=== PATIENT | female | born 2000 | race Caucasian/White ===

== ENCOUNTER 2018-08-31 14:45 | Emergency (ER) | payer MEDICAID, SELFPAY ==
[2018-08-31] VITALS (12 sets, daily range): BP systolic 104–131; BP diastolic 49–95; PULSE 58–86; RESP 13–18; TEMP 36–36.4; O2SAT 95–100
--- NOTE | 2018-08-31 15:12 | DI.CT_ITS ---
SYMPTOM/DIAGNOSIS: ABDOMINAL PAIN DIFFUSE 4 DAYS, VOMITING ABDOMINAL AND PELVIS CT: 08/31 CT examination of the abdomen and pelvis was performed with intravenous infusion of 80 cc Omnipaque 350. There is significant motion artifact. Images obtained through the lung bases are unremarkable. Liver, spleen and pancreas are grossly unremarkable. Adrenals and kidneys appear intact. Abdominal aorta is of normal diameter and no major vascular abnormalities seen. Gallbladder and bile ducts are CT normal. No gross abdominal wall hernia seen. No gross abdominal or pelvic adenopathy seen. Appendix appears normal. No evidence of bowel obstruction. There appears to be a small left ovarian cyst measuring roughly 2 to 2.5 cm in diameter. Small quantity of free fluid is noted in the pelvis raising the possibility of leaking or ruptured ovarian cyst. [employer] structures otherwise appear intact. CONCLUSION: Question of recently ruptured ovarian cyst, please correlate clinically.
--- NOTE | 2018-08-31 15:16 | ED.GENADUL_ITS ---
Discharge Plan Disposition Patient Disposition: HOME Condition: Improving Discharge Details Chief Complaint: Abd Prob Clinical Impression: Abdominal pain, Ovarian cyst, Vomiting, Hypokalemia Reason For Visit: abd Primary Care Provider: Evelina,Local ED Provider: Collin Hardy and New Rx's Prescriptions: New promethazine 25 mg suppository 25 mg SD Q6H PRN (Reason: nausea and vomiting) Qty: 12 RF: 0 ondansetron 4 mg tablet,disintegrating 4 mg PO QID PRN (Reason: nausea and vomiting) Qty: 20 RF: 0 Continue omeprazole 40 mg Capsule,Delayed Release(Dr/Ec) 40 mg PO DAILY AM RF: 0 Discharge Instructions Instructions: Ovarian Cyst (ED), Hypokalemia (ED), Abdominal Pain (ED) Additional Instructions: Please contact your primary care physician to arrange follow-up. Please follow-up with gastroenterology as previously referred. Return to the ER for any worsening or new concerning symptoms. Referrals: Primary Care Provider [Outside] Discharge Data Discharge Date/Time-TO BE ENTERED AT DEPARTURE: 08/31/18 22:19 Medical Decision Making <Felix Caba MD - Last Filed: 09/05/18 10:03> 15:20 --18-year-old female with history of GERD, chronic intermittent abdominal pain for years, here with severe diffuse abdominal pain for the past 4 days with associated vomiting and inability to tolerate per oral intake. Diffusely tender on exam. Patient appears quite uncomfortable. Patient notes anti acid not helping and she is requesting pain medication. Patient also complaining of central chest burning discomfort. Plan to treat with Pepcid IV. Will also give a low dose of morphine 2mg IV. Zofran IV. IVF bolus. Given degree of discomfort and severe tenderness on exam, concern for acute surgical process. Plan to CT abdomen pelvis. We will attempt to obtain outside hospital records from [facility] and [facility]. 17:29 --outside hospital records were obtained and reviewed: Patient had multiple recent visits 2 [facility] for abdominal pain at the end of May and early June was diagnosed with cyclic vomiting syndrome and superior mesenteric artery syndrome (she was diagnosed with this in the past). Labs reviewed: Leukocytosis noted. Patient does have an anion gap of 18.2. I suspect this is secondary to excessive vomiting and starvation ketosis. Patient does have mild elevation of lactate 2.1. Patient has received 1 L of lactated Ringer's. I will give an additional liter of crystalloid with plan to recheck chemistry. Hypokalemia with a potassium 3.0. Plan to give 20 mEq IV and [address] of the abdomen pelvis was interpreted by radiology: Tiny amount of pelvic free fluid with bilateral ovarian cyst, findings suggesting recent ovarian cyst rupture. No focal inflammatory process. No bowel obstruction. No obstructive uropathy. Patient reassessed: Abdominal pain improved. Requesting to eat. Will give crackers. Noting persistent chest discomfort. Plan obtain chest xray. 18:30 --chest x-ray interpreted by radiology: No evidence of acute cardiopulmonary disease. 19:00 -- Patient reassessed and now with return of substernal chest and epigastric abd pain. Will give protonix. 20:00 -- Patient still will burning discomfort in chest. Will obtain CT chest. Care signed out to Dr. Hardy. Will give phenergan. HPI <Felix Caba MD - Last Filed: 09/05/18 10:03> General Mode of arrival: ambulatory . Date/Time Provider Initiated Documentation: 08/31/18 14:56 . Limitations to Documentation: no limitations . Information obtained by: patient . HPI Narrative: 18-year-old female here with chief complaint of abdominal pain. Patient notes she has had diffuse, burning, abdominal pain for the past 4 days. Pain is worse in the upper abdomen. She has associated nausea and vomiting. Not able to tolerate any oral intake at this time. No fever. Patient has had irregular menses over the past month. Related Data Home Medications Medication Instructions Recorded Confirmed omeprazole 40 mg PO DAILY AM 08/31/18 08/31/18 ondansetron 4 mg PO QID PRN #20 tab 08/31/18 promethazine 25 mg SD Q6H PRN #12 each 08/31/18 Previous Rx's Medication Instructions Recorded ondansetron 4 mg PO QID PRN #20 tab 08/31/18 promethazine 25 mg SD Q6H PRN #12 each 08/31/18 Allergies Allergy/AdvReac Type Severity Reaction Status Date / Time No Known Allergies Allergy Unverified 08/31/18 14:58 General Stated Complaint: Abd Prob GANESH: 3 Review of Systems <Felix Caba MD - Last Filed: 09/05/18 10:03> Review of Systems All systems reviewed & are unremarkable except as noted in HPI and below Constitutional Reports fatigue Cardiovascular Reports chest pain Gastrointestinal Reports abdominal pain, Reports nausea and Reports vomiting Endocrine Reports fatigue Exam <Felix Caba MD - Last Filed: 09/05/18 10:03> Const General: cooperative and no acute distress [facility] Head: normocephalic and atraumatic Mouth: moist mucous membranes Eyes Conjunctivae: normal conjunctivae Sclera: normal sclerae EOM: EOM intact bilaterally Neck Neck: trachea midline and supple Resp Auscultation: clear to auscultation bilaterally, no rales, no rhonchi and no wheezes Cardio Jugular venous pressure: no JVD Rate: regular rate and not tachycardic Rhythm: regular rhythm GI Palpation: soft, not firm, no guarding, no masses, not rigid and tender (diffuse ) with no rebound tenderness Skin General skin exam: no rashes or lesions noted Neuro General: alert, awake, oriented x3 and tone normal Extrem General: no edema Psych Appearance: grossly normal Mental Status: mental status grossly normal Speech and Movement: speech and movement normal Affect: anxious affect Course <Felix Caba MD - Last Filed: 09/05/18 10:03> Vital Signs Temperature 36 C L 08/31/18 14:55 Pulse 58 L 08/31/18 14:55 Respiratory Rate 16 08/31/18 14:55 Blood Pressure 131/95 H 08/31/18 14:55 Pulse Oximetry 100 08/31/18 14:55 Temperature 36 C L 08/31/18 14:55 Temperature Source Temporal Artery Scan 08/31/18 14:55 Pulse 58 L 08/31/18 14:55 Respiratory Rate 16 08/31/18 14:55 Respiratory Effort 08/31/18 14:59 Blood Pressure 131/95 H 08/31/18 14:55 Blood Pressure Position Sitting 08/31/18 14:55 Pulse Oximetry 100 08/31/18 14:55 Oxygen Delivery Method Room Air 08/31/18 14:55 Oxygen Flow Rate 0 08/31/18 14:55 Pain Level 10 08/31/18 14:55 Sign Out <Felix Caba MD - Last Filed: 09/05/18 10:03> Sign Out Data: Sign Out Comment: Care signed out to Dr. Hardy at 20:00. Plan to give additional IVF bolus, obtain CT chest, reassess for disposition. Last updated by Felix Caba MD at 08/31/18 20:12 Post-Handoff Eval: Patient received a 3rd liter of fluid and IV phenergan while waiting for chest CT to be done. Repeat potassium and anion gap better. She is feeling much better. CT scan of chest is negative. Patient comfortable going home with prescription for Zofran ODT and Phenergan suppositories. Continue omeprazole. Follow up with GI referral as planned. Return to ED for fever, persistent vomiting, new/worse pain.
[2018-08-31] MEDS: Lactated Ringers 1,000 ML 1000 ML IV ×2 (15:25→17:30)
[2018-08-31] MEDS: Ondansetron 4 MG/2 ML VIAL IVP (15:31)
[2018-08-31] MEDS: MORPHine 10 MG/ML VIAL 2 MG IVP (15:32)
[2018-08-31] MEDS: FAMOTIDINE 20 MG/50 ML BAG 200 MG IVPB (15:34)
[2018-08-31 15:46] LABS: Abs Immature Grans 0.03 k/cumm (0.0-0.09); Absolute Basophil Count 0.02 k/cumm (0.0-0.2); Absolute Lymphocyte Count 1.32 k/cumm (1.2-3.4); Basophils % 0.2; HCT 46.6 % (36.0-46.0); HGB 16.7 g/dL (12.0-15.5); Immature Grans % 0.2; Lymphocytes % 10.8; Mean Corp. HGB Concentration 35.8 g/dL (32.0-36.0); Mean Corpuscular Hemoglobin 29.2 pg (27.0-33.0); Mean Corpuscular Volume 81.6 fL (80-95); Monocytes % 9.7; Neutrophils % 79.1; Platelet Count 317 x1000/uL (130-400); RBC 5.71 m/cumm (4.00-5.20); RBC Distribution Width 12.3 % (11.7-14.6); White Blood Cell Count 12.21 k/cumm (4.4-10.8)
[2018-08-31 15:48] LABS: Absolute Monocyte Count 1.18 k/cumm (0.11-0.7); Absolute Neutrophil Count 9.66 k/cumm (1.2-6.7)
[2018-08-31 15:55] LABS: Lipase 130 U/L (73-393)
[2018-08-31 15:58] LABS: ALT 25 U/L (12-78); AST 16 U/L (15-37); Albumin 4.7 g/dL (3.4-5.0); Alkaline Phosphatase 74 U/L (46-116); Anion Gap 18.2 mmol/L (3-11); BUN 33 mg/dL (7-18); Bilirubin, Total 1.2 mg/dL (0.2-1.0); CO2 25.8 mmol/L (21.0-32.0); CREATININE 1.06 mg/dL (0.55-1.02); Calcium 10.3 mg/dL (8.5-10.1); Chloride 92 mmol/L (98-107); Glucose 102 mg/dL (70-100); Sodium 136 mmol/L (136-145); Total Protein 9.2 g/dL (6.4-8.2)
[2018-08-31 16:06] LABS: Bilirubin Small (Negative); Blood Negative (Negative); Clarity Cloudy; Glucose Negative (Negative); Ketones >=160 mg/dL (Negative); Leukocyte Esterase Negative (Negative); Nitrite Negative (Negative); Specific Gravity 1.025 (1.005-1.025); Urobilinogen 0.2 EU/dL (Up TO 0.2)
[2018-08-31] MEDS: Mylanta Suspension 30 ML CUP PO (16:06)
[2018-08-31 16:18] LABS: Bacteria Few HPF (Negative); C & S Indicated? No/Sq. Contamination; Casts Negative LPF (Negative); Crystals Negative HPF (Negative); Epithelial Cells Many HPF (Negative); Mucus Moderate (Negative); Other Cells Negative (Negative); RBC Negative (0-2); WBC 0-2 HPF (0-5)
[2018-08-31] MEDS: Omnipaque 350 MG/ML 100 ML BTL IJ (16:37)
--- NOTE | 2018-08-31 16:45 | DI.VRAD_ITS ---
EXAM: CT Abdomen and Pelvis With Intravenous Contrast EXAM DATE/TIME: 08/31/2018 3:15 PM CLINICAL HISTORY: 18 years old, female; Pain; Abdominal pain; Generalized; Patient HX: Diffuse abdominal pain 4 days, vomiting TECHNIQUE: Axial computed tomography images of the abdomen and pelvis with intravenous contrast. Coronal and sagittal reformatted images were created and reviewed. COMPARISON: No relevant prior studies available. FINDINGS: Appendix appears to be normal. Tiny amount of pelvic free fluid with bilateral ovarian cysts. Findings suggest possible recent ovarian cyst rupture. No focal inflammatory process. No bowel obstruction. No obstructive uropathy. IMPRESSION: Findings suggesting recent ovarian cyst rupture. Dictated and Authenticated by: Juan Chaidez MD. Ordering:ALEXEI ROSAS MD
[2018-08-31 16:50] LABS: Lactate-non-spesis 2.1 mmol/L (0.6-1.4)
--- NOTE | 2018-08-31 17:16 | DI.RAD_ITS ---
SYMPTOM/DIAGNOSIS: CHEST PAIN PA AND LATERAL CHEST: 08/31 The heart is normal in size. The lungs are clear. The mediastinal structures and pleura appear intact. CONCLUSION: Normal chest.
[2018-08-31] MEDS: POTASSIUM CHLORIDE 20 MEQ/100 ML BAG 50 MEQ IVPB (17:47)
--- NOTE | 2018-08-31 17:50 | DI.VRAD_ITS ---
EXAM: XR Chest, 2 Views EXAM DATE/TIME: 08/31/2018 5:17 PM CLINICAL HISTORY: 18 years old, female; Pain; Chest pain TECHNIQUE: XR of the chest, 2 views. COMPARISON: No relevant prior studies available. FINDINGS: The lung pereira are clear bilaterally. No focal pulmonary consolidation is present. The cardiac silhouette is within normal limits. The costophrenic angles are sharp. The bony structures appear unremarkable. IMPRESSION: No evidence of acute cardiopulmonary disease. Dictated and Authenticated by: Juan Chaidez MD. Ordering:ALEXEI ROSAS MD
[2018-08-31] MEDS: Lactated Ringers 1,000 ML 150 ML IV (18:28)
[2018-08-31] MEDS: Potassium Chloride 10 MEQ TABCR 20 MEQ PO (18:36)
[2018-08-31] MEDS: Pantoprazole 40 MG VIAL IVP (19:04)
[2018-08-31 19:51] LABS: Lactate-non-spesis 1.9 mmol/L (0.6-1.4)
--- NOTE | 2018-08-31 19:55 | DI.CT_ITS ---
SYMPTOM/DIAGNOSIS: CHEST PAIN, LEUKOCYTOSIS CHEST CT: 08/31 CT examination of the chest was performed with intravenous infusion of 70 cc of Omnipaque 350. There is breathing artifact on this examination. The lungs are clear. Tracheobronchial tree appears intact. No evidence of mediastinal or hilar adenopathy. No evidence of pulmonary embolic disease. No thoracic aortic aneurysm or dissection. CONCLUSION: Negative chest CT.
[2018-08-31 20:02] LABS: Anion Gap 11.4 mmol/L (3-11); BUN 23 mg/dL (7-18); CO2 25.6 mmol/L (21.0-32.0); Calcium 8.6 mg/dL (8.5-10.1); Chloride 99 mmol/L (98-107); Glucose 88 mg/dL (70-100); Potassium 3.6 mmol/L (3.5-5.1); Sodium 136 mmol/L (136-145)
[2018-08-31] MEDS: Normal Saline 1,000 ML 1000 ML IV (21:21)
--- NOTE | 2018-08-31 21:21 | DI.VRAD_ITS ---
EXAM: CT Chest With Contrast EXAM DATE/TIME: 08/31/2018 7:57 PM CLINICAL HISTORY: 18 years old, female; Pain; Chest pain; Type not specified; Patient HX: Chest pain, leukocytosis TECHNIQUE: Axial computed tomography images of the chest with intravenous contrast. Coronal and sagittal reformatted images were created and reviewed. COMPARISON: CR XR CHEST 2V PA LATERAL 08/31/2018 5:37 PM FINDINGS: No evidence of PE. No significant focal consolidation. No pleural effusion. No pneumothorax. No adenopathy. Unremarkable upper abdomen. No acute mediastinal or aortic abnormality. IMPRESSION: No specific etiology identified for the patient's symptoms. Dictated and Authenticated by: Juan Chaidez MD. Ordering:ALEXEI ROSAS MD
== END 2018-08-31 22:19 | disposition home or self-care (01) ==
PROVIDERS: Student in an Organized Health Care Education/Training Program; Emergency Provider Emergency Medicine
DX: R10.13 Epigastric pain (principal); N83.201 Unspecified ovarian cyst, right side; N83.202 Unspecified ovarian cyst, left side; R11.2 Nausea with vomiting, unspecified; E87.6 Hypokalemia; R07.9 Chest pain, unspecified
CPT/HCPCS: 36415; 80048; 80053; 81025; 83690; 99285; 71046; 71260; 74177; 81003; 81015; 83605; 85025; 99284; J2270; J2405; J3480; J3490